=== PATIENT | male | born 1975 | race Caucasian/White ===

== ENCOUNTER 2025-08-02 19:22 | Emergency (ER) | payer BC, SELFPAY ==
[2025-08-02 19:28] VITALS: BP 186/137
[2025-08-02 19:47] LABS: Hematocrit 41.8 % (39.0-52.0); Hemoglobin 15.0 g/dL (13.0-18.0); Mean Corp Hgb Conc. 35.9 g/dL (33.0-37.0); Mean Corpuscular Volume 92.7 fL (80.0-94.0); Nucleated Red Blood Cells % 0 % (-); Platelet Count 232 10^3/uL (130-400); Red Cell Dist. Width 13.8 % (11.5-14.5)
[2025-08-02 20:01] LABS: ALT (SGPT) 87 U/L (0-50); AST (SGOT) 57 U/L (17-59); Albumin 5.0 g/dl (3.5-5.0); Alkaline Phosphatase 85 U/L (38-126); Blood Urea Nitrogen 15 mg/dl (9-20); Calcium 10.3 mg/dl (8.4-10.2); Carbon Dioxide 26 mmol/L (22-30); Chloride 103 mmol/L (98-107); Glucose 166 mg/dl (70-99); Potassium 3.7 mmol/L (3.5-5.1); Sodium 138 mmol/L (135-145); Total Protein 8.4 g/dl (6.3-8.2); eGFR > 60.00
[2025-08-02 20:10] LABS: Troponin I < 0.012 ng/ml
[2025-08-02 20:49] VITALS: BP 189/119
[2025-08-02 21:00] VITALS: BP 187/110
[2025-08-02 21:26] VITALS: BMI 31.3
[2025-08-02 21:39] VITALS: BP 198/107
--- NOTE | 2025-08-02 21:46 | ED.GENMED ---
History of Present Illness
General
Chief Complaint: Blood Pressure Problem
Source: patient
Time Seen by Provider: 08/02/25 21:25
History of Present Illness
History of Present Illness:
50-year-old male with past medical history of anxiety presenting to the emergency department for multiple elevated blood pressures over the last week or so, noted that while at the gym while doing cardio he has felt a little more short of breath
than usual which is what had him concerned and prompted him to come to the ER tonight. 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 Patient is not on any medications but states that he
thought a while back his anxiety was triggering elevated blood pressures so he thought that by getting his anxiety under control that his blood pressure would also be controlled with it. He admits that his diet can be poor at times as well as
drinks 4-5 alcoholic beverages 3-4 times per week. Presently patient is asymptomatic. Family history was noted for brother having high blood pressure, believes mother also has high blood pressure and mother had a HI at a later stage in life.
Past History
Past History
ED Past Medical History: Psychiatric and Other (Cluster headaches)
ED Past Surgical History: Cholecystectomy and Urological
Social History
Tobacco: Former smoker (Quit 5 or 6 years)
Alcohol: Occasional (3-4 times per week)
Drug: None
Personal:
Living: with family
Employment: Employed
Family History
Family History: Other (Family history of gallbladder disease); Negative Early CAD or CAD
Phy Exam
Physical Exam
Physical Exam:
GENERAL: Alert , in no apparent distress
HEAD: Normocephalic atraumatic
EYE: conjunctiva clear
NECK: Supple
ENT: o/p clr, mmm.
CARDIAC: Regular rate and rhythm
LUNGS: Clear breath sounds bilaterally, no acute respiratory distress, no wheezes/rales/rhonchi
NEUROLOGICAL: Alert and oriented
SKIN: Warm and dry, skin intact.
MUSCULOSKELETAL: well perfused.
PSYCH: Normal and appropriate interaction.
Scores
Heart Failure Risk
Heart Failure Risk Score: Not Applicable
Heart Score for Chest Pain Patients
STEMI patient?: Not applicable
Withdrawal Assessment of Alcohol
Withdrawal Assessment Completed?: Not applicable
Course
Orders/Labs/Results
Orders:
Orders
08/02/25 19:31
Electrocardiogram (*1) Urgent
Reason for Study: Chest Pain
EKG- Treatment ONCE
08/02/25 19:36
Complete Blood Count/With Diff Urgent
Comprehensive Metabolic Panel Urgent
TSH Urgent
Comment: ADD ON
Troponin I Urgent
08/02/25 21:39
Amlodipine [Norvasc] 5 mg PO NOW STA
08/02/25 21:42
CR Chest - 2 Views Urgent
Comment:
Reason For Exam: HTN, occasional SOB
08/02/25 22:19
Amlodipine [Norvasc] 5 mg PO NOW STA
08/02/25 22:34
Add On- LAB Urgent
Tests Added?: TSH
08/02/25 22:39
Urinalysis Urgent
Date Specimen was Collected: 08/02/25
Time Specimen was Collected: 22:38
Urine Microscopic Urgent
Date Specimen was Collected: 08/02/25
Time Specimen was Collected: 22:38
Abnormal Lab Results
08/02/25 08/02/25
19:36 22:39
RBC 4.51 L 10^6/uL
(4.70-6.10)
MCH 33.3 H pg
(27.0-31.0)
Absolute Monos (auto) 0.8 H 10^3/uL
(0.1-0.6)
Monocytes % 11.9 H %
(1.7-9.3)
Glucose 166 H mg/dl
(70-99)
Calcium 10.3 H mg/dl
(8.4-10.2)
ALT 87 H U/L
(0-50)
Total Protein 8.4 H g/dl
(6.3-8.2)
Urine Occult Blood 1+ A
(Negative)
Urine Glucose 1+ A
(Negative)
Urine Albumin 2+ A
(Neg - Trace)
08/02/25 19:36
08/02/25 19:36
Vital Signs
Initial and Last Documented VS:
Initial Vital Signs
Temp Pulse Resp BP Pulse Ox
98.3 F 120 24 186/137 98
08/02/25 19:28 08/02/25 19:28 08/02/25 19:28 08/02/25 19:28 08/02/25 19:28
Last Documented Vital Signs
Temp Pulse Resp BP Pulse Ox
98.3 F 84 20 186/107 96
08/02/25 19:28 08/02/25 22:22 08/02/25 21:45 08/02/25 22:22 08/02/25 21:52
MDM/Problems Addressed
Differential Diagnosis Includes:
HTN
Malignant HTN
Angina
ACS
Kidney disease
Electrolyte imbalance
Anxiety
MDM/Problems Addressed:
50-year-old male presenting to the ER for evaluation of elevated blood pressure, presently asymptomatic although he notes that at the gym he has been a little more short of breath than usual with some of his cardio workouts. On arrival here patient
noted to be profoundly hypertensive, initially tachycardic but during my exam this is improved. Labs initiated on arrival are unremarkable. EKG nonischemic. Will obtain chest x-ray. Will initiate patient on amlodipine and patient will need to
follow-up with his care provider who he admits he has not seen in a few years. We also discussed dietary modification and trying to avoid further alcohol ingestion.
*Radiology
Radiology exam reviewed: preliminary read by ED provider (Normal chest x-ray)
*Pulse Oximetry
SaO2: 96
Oxygen Mode of Delivery: Room air
Patient hypoxic: no
*EKG
Heart Rate: 108
Rate: tachycardiac
Rhythm: sinus
[place]: normal axis
Ischemia: T-wave inversion (inferior leads)
*Application Integration Architect Interpretation
Rate: normal
Heart Rate: 93
Rhythm: sinus
*Critical Care Note
Total Time (30-74mins, 75-104mins- exclusive of procedures): Not Applicable
Patient Management
Escalation/DeEscalation of care consider admission/obs:
Patient's workup is largely unremarkable. He does have some mild proteinuria but normal renal function. Patient will need close follow-up with primary care provider. He will contact them in the morning. 1 month supply of amlodipine sent to
pharmacy. Patient has a blood pressure cuff and will monitor his blood pressure at home. Discussed return precautions to the ER. Patient is agreeable to this plan.
ED Attending Note
-
Portions of this chart may have been created with voice recognition software.� Occasional wrong word or��sound alike� substitutions may have occurred due to the inherent limitations of voice recognition software.
Discharge Plan
Departure
Patient Disposition: Home (Routine Discharge)
Date of Disposition: 08/02/25
Time of Disposition: 22:42
Patient with high blood pressure during this ER visit?: Yes
Discharge Problem:
Hypertension
Instructions: High Blood Pressure (DC)
Prescriptions:
New
amlodipine 10 mg tablet
10 mg PO DAILY Qty: 30 0RF
No Action
Vitamin K2
1 tab PO DAILY
verapamil [Verelan] 240 MG capsule,ext rel. pellets 24 hr
240 mg PO TID
docosahexaenoic acid-epa 1 CAP capsule
1 cap PO DAILY
magnesium oxide 500 MG capsule
500 mg PO DAILY
cholecalciferol (vitamin D3) 10,000 UNIT tablet
10,000 unit PO DAILY
Referrals:
Silverio Fontanez MD [Family Provider, Family Practice]
Interventions
Interventions:
*Risk Screen - Suicide Last Done: 08/02/25 19:28
*General Assessment Last Done: 08/02/25 20:53
*Neglect/Abuse Screening Last Done: 08/02/25 19:28
*ED- Fall Risk Assessment Last Done: 08/02/25 20:53
*ED COVID-19 Vaccine History Last Done: 08/02/25 20:53
ED- Cardiac Assessment Last Done: 08/02/25 20:53
ED- Neurological Assessment Last Done: 08/02/25 20:53
ED- Pulmonary Assessment Last Done: 08/02/25 20:53
Discharge Date and Time
Print Language: ANGOLAN
[2025-08-02] MEDS: NORVASC 5 MG PO ×2 (21:50→22:22)
[2025-08-02 22:00] VITALS: BP 186/107
[2025-08-02 22:30] VITALS: BP 173/107
[2025-08-02 22:46] LABS: Urine Character Slightly Cloudy (Clear)
[2025-08-02 23:00] LABS: Urine Squamous Cell 0-2 /LPF (Few)
[2025-08-02 23:52] LABS: TSH 4.13 uIU/ml (0.47-4.68)
== END 2025-08-02 22:50 | disposition home or self-care (01) ==
LOC: EMR 19:22
PROVIDERS: Physician Assistant Medical; Student in an Organized Health Care Education/Training Program; EMERGENCY PHYSICIAN Emergency Medicine; FAMILY PHYSICIAN Family Medicine
DX: I10 Essential (primary) hypertension (principal); R00.0 Tachycardia, unspecified; F41.9 Anxiety disorder, unspecified; Z87.891 Personal history of nicotine dependence; Z82.49 Family history of ischemic heart disease and other diseases of the circulatory system
CPT/HCPCS: 99284; 71046; 80053; 81003; 81015; 84443; 84484; 85025; 93005